=== PATIENT | male | born 1970 | race Caucasian/White ===

== ENCOUNTER 2017-11-12 03:14 | Emergency (ER) | payer OTHER ==
[~2017-11-12 03:14] MED LIST: AMOX TR-K CLV1 EAC2 PO; HYDROCODON-ACE1 EAC2 PO; INDOMETHACIN25 MG PO; LOVAZA1 GM PO; TESTOSTERONE INJ; ZYLOPRIM100 MG PO; [UNRECOGNIZED DRUG - OTHER]
== END 2017-11-12 06:01 | disposition left against medical advice (07) ==
LOC: ER 03:14
DX: M25.562 Pain in left knee (principal)